=== PATIENT | female | born 1980 | race Caucasian/White ===

== ENCOUNTER 2017-05-19 23:57 | Emergency (ER) | payer OTHER ==
[~2017-05-19] VITALS: Ht 154.9 cm; Wt 59.0 kg
--- NOTE | ~2017-05-19 | CR126 ---
[facility] A Service of [facility] & [facility] RADIOLOGY TEXT RESULTS PATIENT: DICK KWOK LOCATION: [facility] : [birth year] UNIT #: [id number] AGE: [address]: Derick Ag SEX: F ORDER DR: [id number] [facility] [address] [place], [place] [address] [id number] E MR#: [id number] Acc #: [id number] NAME: DICK KWOK : 1980 SEX: F STUDY DATE/TIME: 05/20/2017 0:32 UNIT: [facility] ROOM: STUDY DESCRIPTION: CR Foot Complete Min 3 View Lt Attending Physician: Derick Ag P.A.-C. Ordering Physician: Derick Ag P.A.-C. Primary Care Physician: No Primary Care Physician MEDICAL IMAGING REPORT This report is preliminary unless electronic signature is present EXAM Left foot, 05/20/2017. HISTORY 36-year-old female in the ED with fifth toe pain after injury today prior to arrival. Swelling and bruising. Kicked object with toe. TECHNIQUE Three-view left foot series. FINDINGS Comminuted, minimally displaced intraarticular fracture involving the base of the fifth proximal phalanx. Surrounding soft tissue swelling. Remainder of the examination is negative. IMPRESSION Fifth proximal phalanx fracture. Dictated by... David Paige M.D. THIS IS AN ELECTRONICALLY VERIFIED REPORT David Paige M.D. at 05/20/2017 3:53 PM ASAELW/aidan TD: 05/20/2017 12:00 JOB #: [id number] MEDICAL IMAGING REPORT Page 1 of 1 COPY
== END 2017-05-20 01:11 | disposition home or self-care (01) ==
LOC: CED 23:57 → CFTX 23:57 → CED 23:59 → CFTX 05-20 01:11
DX: S92.512A Displaced fracture of proximal phalanx of left lesser toe(s), initial encounter for closed fracture (principal); F17.210 Nicotine dependence, cigarettes, uncomplicated; W22.8XXA Striking against or struck by other objects, initial encounter; Y92.009 Unspecified place in unspecified non-institutional (private) residence as the place of occurrence of the external cause
CPT/HCPCS: 29540; 73630; 99283

== ENCOUNTER 2017-06-02 10:30 | Emergency (ER) | payer OTHER ==
[~2017-06-02] VITALS: Ht 152.4 cm; Wt 61.7 kg
--- NOTE | ~2017-06-02 | CR230 ---
[facility]. [facility] A Service of [facility] RADIOLOGY TEXT RESULTS PATIENT: DICK KWOK LOCATION: SED : 80 UNIT #: [id number] AGE: [address]: SYLVIA VOGT SEX: F ORDER DR: [id number] [place] [id number] E MR#: [id number] Acc #: [id number] NAME: DICK KWOK : 1980 SEX: F STUDY DATE/TIME: 06/02/2017 10:51 UNIT: SED ROOM: STUDY DESCRIPTION: CR Shoulder Min 2 View Rt Attending Physician: Rory Calderón Ordering Physician: Howard Valencia M.D. Primary Care Physician: Primary Care Physician No MEDICAL IMAGING REPORT This report is preliminary unless electronic signature is present. EXAM Right shoulder 3 views, 06/02/2017 10:51 hours HISTORY 36-year-old woman who tripped and fell into a wall with injury to right shoulder 2 days ago. Persistent shoulder pain. COMPARISON Right shoulder, 03/05/2017 FINDINGS AP views in internal and external rotation and a scapula Y-view demonstrate normal bone density and range of motion. The glenohumeral joint and acromioclavicular joint are normal. No fracture seen. IMPRESSION Negative right shoulder. No change from 03/05/2017. Dictated by... Heidi Munoz M.D. THIS IS AN ELECTRONICALLY VERIFIED REPORT Heidi Munoz M.D. at 06/02/2017 2:31 PM Abdi TD: 06/02/2017 12:07 JOB #: [id number] MEDICAL IMAGING REPORT Page 1 of 1
== END 2017-06-02 11:59 | disposition home or self-care (01) ==
LOC: SED 10:30
DX: S46.911A Strain of unspecified muscle, fascia and tendon at shoulder and upper arm level, right arm, initial encounter (principal); F17.210 Nicotine dependence, cigarettes, uncomplicated; W01.0XXA Fall on same level from slipping, tripping and stumbling without subsequent striking against object, initial encounter; Y92.009 Unspecified place in unspecified non-institutional (private) residence as the place of occurrence of the external cause
CPT/HCPCS: 73030; 99283